=== PATIENT | female | born 1975 | race Asian ===

== ENCOUNTER 2021-11-08 23:22 | Emergency (ER) | payer OTHER ==
[~2021-11-08] VITALS: Ht 167.6 cm; Wt 63.5 kg
[2021-11-09 01:05] VITALS: BP 150/98
--- NOTE | 2021-11-09 01:05 | NUR ---
Patient discharged to home in stable condition. Written and verbal after care instructions given. Patient verbalizes understanding of instruction.
== END 2021-11-09 01:06 | disposition home or self-care (01) ==
LOC: ER 23:32
DX: T59.91XA Toxic effect of unspecified gases, fumes and vapors, accidental (unintentional), initial encounter (principal); Y92.89 Other specified places as the place of occurrence of the external cause; Z88.8 Allergy status to other drugs, medicaments and biological substances
CPT/HCPCS: 71045-TC